=== PATIENT | female | born 2000 | race Caucasian/White ===

== ENCOUNTER 2023-02-18 14:17 | Inpatient (IN) | payer MEDICAID ==
[~2023-02-18] VITALS: Ht 162.6 cm; Wt 100.8 kg
[2023-02-18] MEDS ORDERED: HALOPERIDOL 5 MG TABLET PO PRN (18:30)
[2023-02-18] MEDS ORDERED: LORazepam 2 MG TABLET PO PRN (18:30)
[2023-02-18] MEDS ORDERED: ZOLPIDEM TARTRATE 10 MG TABLET PO PRN (18:30)
[2023-02-18 22:02] VITALS: BP 150/96
[2023-02-18 22:26] VITALS: BP 150/94
[2023-02-18 22:36] VITALS: BP 150/94
[2023-02-18] MEDS ORDERED: LOPERAMIDE HCL 2 MG CAPSULE PO PRN (22:45)
[2023-02-18] MEDS ORDERED: HydrOXYzine PAMOATE 50 MG CAPSULE PO PRN (22:45)
[2023-02-18] MEDS ORDERED: ACETAMINOPHEN 325 MG TABLET PO PRN (22:45)
[2023-02-18] MEDS ORDERED: MAG HYDROX/AL HYDROX/SIMETH ES 30 ML SUSPENSION UDCUP PO PRN (22:45)
[2023-02-18] MEDS ORDERED: GuaiFENesin/D-METHORPHAN [SUGAR-FREE] 200-20MG/10 ML SYRUP UDCUP PO PRN (22:45)
[2023-02-18] MEDS ORDERED: MAGNESIUM HYDROXIDE SUSPENSION 30 ML UDCUP PO PRN (22:45)
[2023-02-18] MEDS ORDERED: TUBERCULIN, PURIFIED PROTEIN DERIVATIVE 5 TU/0.1 ML SYRINGE ID ONE (22:45)
[2023-02-18] MEDS ORDERED: PROMETHAZINE HCL 25 MG TABLET PO PRN (22:45)
[2023-02-18] MEDS ORDERED: CloNIDine HCL 0.1 MG TABLET PO PRN (23:45)
[2023-02-19 07:58] LABS: BASOPHILS % (AUTO) 0.4 % (0.0-2.0); EOSINOPHILS % (AUTO) 5.9 % (1.0-6.0); HEMATOCRIT 40.2 % (36-46); HEMOGLOBIN 13.3 g/dL (12.0-16.0); LYMPHOCYTES # (AUTO) 2.5 K/uL (1.0-4.8); LYMPHOCYTES % (AUTO) 36.3 % (22.0-44.0); MEAN CORPUSCULAR HEMOGLOBIN 29.2 pg (26.0-34.0); MEAN CORPUSCULAR HGB CONC 33.1 G/dL (31.0-37.0); MEAN CORPUSCULAR VOLUME 88 fL (80-100); MONOCYTES # (AUTO) 0.7 K/uL (0.1-1.0); MONOCYTES % (AUTO) 10.3 % (2.0-9.0); NEUTROPHILS # (AUTO) 3.3 K/uL (1.8-7.7); NEUTROPHILS % (AUTO) 47.1 % (40.0-70.0); PLATELET COUNT (AUTO) 259 K/uL (150-450); RED BLOOD CELL COUNT(AUTO) 4.55 MIL/uL (4.00-5.20); RED CELL DISTRIBUTION WIDTH 13.4 % (11.5-14.5)
[2023-02-19] MEDS: THIAMINE 100 MG TABLET PO SCH ×2 (08:09→17:03)
[2023-02-19] MEDS: NALTREXONE HCL 50 MG TABLET PO SCH (08:09)
[2023-02-19] MEDS: FOLIC ACID 1 MG TABLET PO SCH (08:09)
[2023-02-19] MEDS: MULTIVITAMINS WITH MINERALS, THERAPEUTIC TABLET PO SCH (08:09)
[2023-02-19] MEDS: ATOMOXETINE HCL 25 MG CAPSULE PO SCH (08:09)
[2023-02-19] MEDS: OMEGA-3/DHA/EPA/FISH OIL 1,000 MG CAPSULE PO SCH (08:09)
[2023-02-19 08:23] VITALS: BP 142/85
[2023-02-19 08:34] LABS: HEMOGLOBIN A1C 5.2 % (3.8-5.6)
[2023-02-19 08:37] LABS: ALANINE AMINOTRANSFERASE 23 U/L (12-78); ALBUMIN 3.6 g/dL (3.4-5.0); ALKALINE PHOSPHATASE 66 U/L (46-116); ANION GAP 11 mmol/L (8-16); ASPARTATE AMINOTRANSFERASE 22 U/L (15-37); BILIRUBIN,TOTAL 0.5 mg/dL (0.1-1.0); CALCIUM, TOTAL 9.2 mg/dL (8.8-10.5); CARBON DIOXIDE 25 mmol/L (22-29); CHLORIDE 106 mmol/L (98-107); CHOL/HDL RATIO 3.8 (3.9-5.7); CHOLESTEROL 157 mg/dL (131-200); CREATININE 0.77 mg/dL (0.60-1.30); FREE T4 (FREE THYROXINE) 1.59 ng/dL (0.76-1.46); GLOMERULAR FILTR. RATE CALC > 60 mL/min (>60); GLUCOSE,RANDOM 85 mg/dL (70-110); HDL CHOLESTEROL 41 mg/dL (40-60); LDL CHOL (CALC.) 106 mg/dL (0-130); POTASSIUM 3.7 mmol/L (3.5-5.1); SODIUM SERUM 142 mmol/L (136-145); THYROID STIMULATING HORMONE 1.42 uIU/mL (0.36-3.74); TOTAL PROTEIN, SERUM 7.6 g/dL (6.4-8.2); TRIGLYCERIDES 50 mg/dL (15-150)
[2023-02-19] MEDS ORDERED: FLUoxetine HCL 20 MG CAPSULE PO SCH (09:00)
[2023-02-19] MEDS ORDERED: BuPROPion HCL XL 150 MG ER TABLET PO SCH (09:00)
[2023-02-19 09:42] VITALS: BP 142/85
[2023-02-19] MEDS ORDERED: HYDROCORTISONE 2.5% 30 GM OINTMENT TP PRN (12:45)
[2023-02-19 13:04] LABS: AMPHET/METH SCREEN,URINE NEGATIVE (NEGATIVE); BARBITURATE SCREEN, URINE NEGATIVE (NEGATIVE); BENZODIAZEPINES SCREEN,URINE NEGATIVE (NEGATIVE); CANNABINOID SCREEN,URINE POSITIVE (NEGATIVE); COCAINE SCREEN,URINE NEGATIVE (NEGATIVE); METHADONE SCREEN, URINE NEGATIVE (NEGATIVE); OPIATE SCREEN,URINE NEGATIVE (NEGATIVE); PHENCYCLIDINE SCREEN,URINE NEGATIVE (NEGATIVE)
[2023-02-19] MEDS ORDERED: QUEtiapine FUMARATE 100 MG TABLET PO PRN (15:45)
[2023-02-19] MEDS: QUEtiapine FUMARATE 200 MG TABLET PO SCH (20:16)
[2023-02-19] MEDS: MELATONIN 5 MG TABLET PO SCH (20:16)
[2023-02-19] MEDS ORDERED: OLANZapine 5 MG RAPDIS TABLET PO SCH (21:00)
[2023-02-19 21:29] VITALS: BP 134/76
[2023-02-20] MEDS: OMEGA-3/DHA/EPA/FISH OIL 1,000 MG CAPSULE PO SCH (08:24)
[2023-02-20] MEDS: FOLIC ACID 1 MG TABLET PO SCH (08:24)
[2023-02-20] MEDS: MULTIVITAMINS WITH MINERALS, THERAPEUTIC TABLET PO SCH (08:24)
[2023-02-20] MEDS: BuPROPion HCL XL 150 MG ER TABLET PO SCH (08:24)
[2023-02-20] MEDS: NALTREXONE HCL 50 MG TABLET PO SCH (08:24)
[2023-02-20] MEDS: THIAMINE 100 MG TABLET PO SCH ×2 (08:24→16:34)
[2023-02-20] MEDS: ATOMOXETINE HCL 25 MG CAPSULE PO SCH (08:25)
[2023-02-20 08:36] VITALS: BP 119/84
[2023-02-20 20:03] VITALS: BP 127/78
[2023-02-20] MEDS: MELATONIN 5 MG TABLET PO SCH (20:24)
[2023-02-20] MEDS: QUEtiapine FUMARATE 200 MG TABLET PO SCH (20:24)
[2023-02-21] MEDS: MULTIVITAMINS WITH MINERALS, THERAPEUTIC TABLET PO SCH (08:10)
[2023-02-21] MEDS: THIAMINE 100 MG TABLET PO SCH ×2 (08:10→16:16)
[2023-02-21] MEDS: BuPROPion HCL XL 150 MG ER TABLET PO SCH (08:10)
[2023-02-21] MEDS: OMEGA-3/DHA/EPA/FISH OIL 1,000 MG CAPSULE PO SCH (08:10)
[2023-02-21] MEDS: FOLIC ACID 1 MG TABLET PO SCH (08:10)
[2023-02-21] MEDS: NALTREXONE HCL 50 MG TABLET PO SCH (08:10)
[2023-02-21] MEDS: ATOMOXETINE HCL 25 MG CAPSULE PO SCH (08:10)
[2023-02-21 08:38] VITALS: BP 118/76
[2023-02-21] MEDS: MELATONIN 5 MG TABLET PO SCH (20:07)
[2023-02-21] MEDS: QUEtiapine FUMARATE 200 MG TABLET PO SCH ×2 (20:07→21:39)
[2023-02-21 20:27] VITALS: BP 131/71
[2023-02-22] MEDS: NALTREXONE HCL 50 MG TABLET PO SCH (08:26)
[2023-02-22] MEDS: THIAMINE 100 MG TABLET PO SCH ×2 (08:26→16:06)
[2023-02-22] MEDS: FOLIC ACID 1 MG TABLET PO SCH (08:26)
[2023-02-22] MEDS: MULTIVITAMINS WITH MINERALS, THERAPEUTIC TABLET PO SCH (08:26)
[2023-02-22] MEDS: OMEGA-3/DHA/EPA/FISH OIL 1,000 MG CAPSULE PO SCH (08:26)
[2023-02-22] MEDS: BuPROPion HCL XL 150 MG ER TABLET PO SCH (08:27)
[2023-02-22 08:29] VITALS: BP 122/79
[2023-02-22] MEDS: ATOMOXETINE HCL 25 MG CAPSULE PO SCH (08:48)
[2023-02-22] MEDS: QUEtiapine FUMARATE 200 MG TABLET PO SCH (20:11)
[2023-02-22] MEDS: MELATONIN 5 MG TABLET PO SCH (20:11)
[2023-02-23] MEDS: OMEGA-3/DHA/EPA/FISH OIL 1,000 MG CAPSULE PO SCH (08:26)
[2023-02-23] MEDS: THIAMINE 100 MG TABLET PO SCH ×2 (08:26→17:13)
[2023-02-23] MEDS: MULTIVITAMINS WITH MINERALS, THERAPEUTIC TABLET PO SCH (08:27)
[2023-02-23] MEDS: ATOMOXETINE HCL 40 MG CAPSULE PO SCH (08:31)
[2023-02-23] MEDS: FOLIC ACID 1 MG TABLET PO SCH (08:32)
[2023-02-23] MEDS: NALTREXONE HCL 50 MG TABLET PO SCH (08:32)
[2023-02-23] MEDS: BuPROPion HCL XL 150 MG ER TABLET PO SCH (09:06)
[2023-02-23 09:30] VITALS: BP 113/65
[2023-02-23 20:19] VITALS: BP 118/71
[2023-02-23] MEDS: MELATONIN 5 MG TABLET PO SCH (20:37)
[2023-02-23] MEDS: QUEtiapine FUMARATE 300 MG TABLET PO SCH (20:37)
[2023-02-24] MEDS: THIAMINE 100 MG TABLET PO SCH ×2 (08:12→16:07)
[2023-02-24] MEDS: OMEGA-3/DHA/EPA/FISH OIL 1,000 MG CAPSULE PO SCH (08:13)
[2023-02-24] MEDS: BuPROPion HCL XL 150 MG ER TABLET PO SCH (08:13)
[2023-02-24] MEDS: FOLIC ACID 1 MG TABLET PO SCH (08:13)
[2023-02-24] MEDS: ATOMOXETINE HCL 40 MG CAPSULE PO SCH (08:13)
[2023-02-24] MEDS: NALTREXONE HCL 50 MG TABLET PO SCH (08:13)
[2023-02-24] MEDS: MULTIVITAMINS WITH MINERALS, THERAPEUTIC TABLET PO SCH (08:13)
[2023-02-24 08:34] VITALS: BP 103/60
[2023-02-24] MEDS: QUEtiapine FUMARATE 300 MG TABLET PO SCH (20:40)
[2023-02-24] MEDS: MELATONIN 5 MG TABLET PO SCH (20:40)
[2023-02-24 21:00] VITALS: BP 112/65
[2023-02-25 08:10] VITALS: BP 110/57
[2023-02-25] MEDS: NALTREXONE HCL 50 MG TABLET PO SCH (08:17)
[2023-02-25] MEDS: FOLIC ACID 1 MG TABLET PO SCH (08:17)
[2023-02-25] MEDS: ATOMOXETINE HCL 40 MG CAPSULE PO SCH (08:17)
[2023-02-25] MEDS: BuPROPion HCL XL 150 MG ER TABLET PO SCH (08:17)
[2023-02-25] MEDS: MULTIVITAMINS WITH MINERALS, THERAPEUTIC TABLET PO SCH (08:17)
[2023-02-25] MEDS: THIAMINE 100 MG TABLET PO SCH ×2 (08:17→15:59)
[2023-02-25] MEDS: OMEGA-3/DHA/EPA/FISH OIL 1,000 MG CAPSULE PO SCH (08:17)
[2023-02-25] MEDS ORDERED: MELA5TAB40 PO (13:38)
[2023-02-25] MEDS ORDERED: NALT50TA PO (13:38)
[2023-02-25] MEDS ORDERED: OMEG-135 PO (13:38)
[2023-02-25] MEDS ORDERED: ATOM40CA9 PO (13:38)
[2023-02-25 20:08] VITALS: BP 111/60
[2023-02-25] MEDS: MELATONIN 5 MG TABLET PO SCH (20:23)
[2023-02-25] MEDS ORDERED: QUEtiapine FUMARATE 200 MG TABLET PO SCH (21:00)
[2023-02-26] MEDS: OMEGA-3/DHA/EPA/FISH OIL 1,000 MG CAPSULE PO SCH (08:15)
[2023-02-26] MEDS: THIAMINE 100 MG TABLET PO SCH ×2 (08:15→16:17)
[2023-02-26] MEDS: ATOMOXETINE HCL 40 MG CAPSULE PO SCH (08:15)
[2023-02-26] MEDS: FOLIC ACID 1 MG TABLET PO SCH (08:15)
[2023-02-26] MEDS: MULTIVITAMINS WITH MINERALS, THERAPEUTIC TABLET PO SCH (08:15)
[2023-02-26] MEDS: NALTREXONE HCL 50 MG TABLET PO SCH (08:15)
[2023-02-26 08:16] VITALS: BP 106/69
[2023-02-26] MEDS ORDERED: BuPROPion HCL XL 150 MG ER TABLET PO SCH (09:00)
[2023-02-26] MEDS ORDERED: BUPR-49 PO (12:32)
[2023-02-26] MEDS ORDERED: QUET200T30 PO (12:32)
== END 2023-02-26 16:39 | disposition home or self-care (01) | DRG 750 ==
LOC: B3A 18:57 → UNDODISIN 02-25 13:35 → B3A 02-25 18:10
PROVIDERS: ADMIT Psychiatry & Neurology Psychiatry; ATTEND Psychiatry & Neurology Psychiatry
DX: F25.9 Schizoaffective disorder, unspecified (principal); G93.41 Metabolic encephalopathy; F31.4 Bipolar disorder, current episode depressed, severe, without psychotic features; R45.851 Suicidal ideations; F17.210 Nicotine dependence, cigarettes, uncomplicated; I10 Essential (primary) hypertension; F90.9 Attention-deficit hyperactivity disorder, unspecified type; F43.10 Post-traumatic stress disorder, unspecified; F12.10 Cannabis abuse, uncomplicated; Z79.899 Other long term (current) drug therapy
CPT/HCPCS: 80053; 80061; 80307; 83036; 84439; 84443; 84703; 85025; 86592; Q9967